=== PATIENT | female | born 1980 | race Caucasian/White ===

== ENCOUNTER → 2017-02-03 | Outpatient (CLI) | payer OTHER ==
[~2017-02-03] MED LIST: AUGMENTIN PO; CIPRO PO; FLEXERIL10 MG PO; IBUPROFEN400 MG PO; LORTAB 5/500 TA1 TA2 PO; MEDROL4 MG/DOSE- PO; NAPROSYN500 MG PO; NORCO 5/325 TAB1 TAB PO; PHENERGAN25 M1 PO; PHENERGAN25 MG PO; PREDNISONE10 MG/DOSE PO; PYRIDIUM PO; VESICARE PO; ZOLOFT PO
--- NOTE | ~2017-02-03 | CR181 ---
[facility] A Service of [facility] RADIOLOGY TEXT RESULTS PATIENT: RYANN TAN LOCATION: [facility] : 76 UNIT #: [id number] AGE: [address]: OSMANY SMITH SEX: F ORDER DR: [id number] [facility] [address] [place], [place] [address] [id number] O MR#: [id number] Acc #: [id number] NAME: RYANN TAN : 1980 SEX: F STUDY DATE/TIME: 02/03/2017 17:20 UNIT: [facility] ROOM: STUDY DESCRIPTION: CR Lumbar Spine 2 or 3 Views Attending Physician: Osmany Smith Aprn Referring Physician: Osmany Smith Aprn Ordering Physician: Osmany Smith Aprn Primary Care Physician: Jaja Braden A.P.R.N. MEDICAL IMAGING REPORT This report is preliminary unless electronic signature is present EXAM Lumbar spine series 2 or 3 views HISTORY Lumbar spine x-ray. Patient has pain in low back since last night. Patient fell. COMMENT AP lateral lumbosacral views lumbar spine reviewed. There is no previous study of the lumbar spine. Sagittal alignment is normal. There is mild loss of disc height at L5-S1 versus a developmentally smaller disc and minimal anterior endplate spondylosis multiple levels. There is no acute fracture. There is no bone destruction. Patient has had a previous cholecystectomy. If symptoms persist and more information is needed consider followup with MRI lumbar spine if the patient is a candidate. IMPRESSION Minor lumbar degenerative changes on plain film. No acute fracture or malalignment. Dictated by... Susanna Clarke M.D. THIS IS AN ELECTRONICALLY VERIFIED REPORT Susanna Clarke M.D. at 02/05/2017 7:57 AM REMY/bret TD: 02/05/2017 01:20 JOB #: [id number] [facility] A Service of [facility] RADIOLOGY TEXT RESULTS PATIENT: RYANN TAN LOCATION: [facility] : 76 UNIT #: [id number] AGE: [address]: OSMANY SMITH SEX: F ORDER DR: MEDICAL IMAGING REPORT Page 1 of 1 COPY
--- NOTE | ~2017-02-03 | CR157 ---
[facility] A Service of [facility] RADIOLOGY TEXT RESULTS PATIENT: RYANN TAN LOCATION: [facility] : 76 UNIT #: [id number] AGE: [address]: OSMANY SMITH SEX: F ORDER DR: [id number] [facility] [address] [place], [place] [address] [id number] O MR#: [id number] Acc #: [id number] NAME: RYANN TAN : 1980 SEX: F STUDY DATE/TIME: 02/03/2017 17:26 UNIT: [facility] ROOM: STUDY DESCRIPTION: CR Humerus Min 2 View Rt Attending Physician: Osmany Smith Aprn Referring Physician: Osmany Smith Aprn Ordering Physician: Osmany Smith Aprn Primary Care Physician: Jaja Braden A.P.R.N. MEDICAL IMAGING REPORT This report is preliminary unless electronic signature is present EXAM Right humerus series, 02/03/2017 COMPARISON Right shoulder series dated 07/24/2010 and right elbow series dated 07/15/2010. HISTORY Right arm close to the right elbow region and back pain since last night post fall. FINDINGS Two views of the right humerus were obtained. No acute displaced fracture or dislocation. There is expected bony alignment and architecture. IMPRESSION No demonstrable abnormality. Dictated by... Stephon Barron M.D. THIS IS AN ELECTRONICALLY VERIFIED REPORT Stephon Barron M.D. at 02/05/2017 7:32 PM CPR/ljd TD: 02/05/2017 00:46 JOB #: [id number] MEDICAL IMAGING REPORT Page 1 of 1 COPY
== END | disposition home or self-care (01) ==
LOC: CRAD 17:06
DX: M25.511 Pain in right shoulder (principal); M54.5 Low back pain; M47.896 Other spondylosis, lumbar region; W08.XXXA Fall from other furniture, initial encounter
CPT/HCPCS: 72100; 73060

== ENCOUNTER → 2017-03-15 | Outpatient (CLI) | payer OTHER ==
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
== END | disposition home or self-care (01) ==
LOC: CMRI 09:06
DX: M54.31 Sciatica, right side (principal); M47.892 Other spondylosis, cervical region
CPT/HCPCS: 72141